=== PATIENT | female | born 1990 | race Caucasian/White ===

== ENCOUNTER 2021-02-22 13:30 | Outpatient (CLI) | payer BC, MEDICAID, SELFPAY ==
[2021-02-22 13:30] VITALS: BMI 27.4
[2021-02-22 13:49] VITALS: BP 119/79; PULSE 88
[2021-02-22 14:19] VITALS: BP 112/61; PULSE 88
[2021-02-22 14:29] VITALS: RESP 16; TEMP 36.7
--- NOTE | 2021-02-22 14:29 | US_ITS ---
WS: [id number] BIOPHYSICAL PROFILE AMNIOTIC FLUID HISTORY: DECREASED MOVEMENT, NON REACTIVE NST COMPARISON: 10/30/2020 Cardiac activity: 144 bpm. Cervix: closed. Placenta: Posterior, no previa or abruption. Placenta grade: 2 Parameters are as follows: Breathin Movement: 2 Tone: 2 Fluid volume: 2 Amniotic fluid index: 14.9 cm which is at the 50th percentile. Largest vertical pocket of amniotic fl uid 6.1 cm. US/US OB BPP wo NST [id number] IMPRESSION: 1. Biophysical profile score: 8/8. 2. Normal amniotic fluid index.
[2021-02-22 14:49] VITALS: BP 120/68; PULSE 98
[2021-02-22 15:19] VITALS: BP 114/72; PULSE 84
[2021-02-22 15:50] VITALS: BP 116/76; PULSE 83
== END 2021-02-22 16:00 | disposition home or self-care (01) ==
LOC: OPOB 13:35 → OBGYN 13:39
PROVIDERS: Visit Provider Family Medicine
DX: O36.8190 Decreased fetal movements, unspecified trimester, not applicable or unspecified (principal); Z3A.00 Weeks of gestation of pregnancy not specified
CPT/HCPCS: 59025; 76819; 99211

== ENCOUNTER 2021-03-12 05:11 | Inpatient (IN) | payer MEDICAID, SELFPAY ==
--- NOTE | 2021-02-14 08:47 | ANES.PREANE2 ---
Pre-Anesthetic Assessment Pre-Anesthetic Assessment: Proposed Procedure: Operation Date: 03/12/21 08:30 Proposed Procedures p Section Repeat(Not Applicable) - Yifan Norman MD Was Beta Sheila taken within 24 hours: N/A Was Clonidine taken within 24 hours: N/A Social: Social History: No alcohol and No tobacco Exam: Pre-Anes Outpt Exam: alert, oriented x 3, clear to auscultation bilaterally and regular rate & rhythm Airway: Submandibular: WNL Cervical ROM: WNL MP: 2 Dentition: Full History/ROS: No significant history except as noted Anesthetic Plan: ASA status: 2 Anesthesia: Regional (specify below) (SAB) Other: Previous C/S Risk of > 500 ml blood loss (7ml/kg in children): Yes, adequate IV access and fluids planned Data Anesthesia Cardiac Studies: No Data to Display
[2021-03-12] VITALS (28 sets, daily range): BP systolic 102–127; BP diastolic 63–83; PULSE 52–85; RESP 15–18; TEMP 36.2–36.7; O2SAT 97–100; BMI 28.7
[2021-03-12 05:56] LABS: Basophils % 0.5 %; Eosinophils % 0.5 %; Hematocrit 34.2 % (37.0-47.0); Hemoglobin 10.6 g/dL (11.5-15.3); Lymphocytes # 2.4 10^3/uL (0.8-4.8); Lymphocytes % 27.7 %; Mean Corpuscular Hemoglobin 27.4 pg (28.0-34.0); Mean Corpuscular Volume 88.4 fl (81-99); Mean Platelet Volume 11.8 fL (7.4-10.4); Monocytes # 0.5 10^3/uL (0.2-0.9); Monocytes % 5.5 %; Neutrophils # 5.68 10^3/uL (1.8-7.7); Neutrophils % 64.5 %; Nucleated Red Blood Cells % 0 %; Platelet Count 181 10^3/cmm (130-400); Red Blood Count 3.87 10^6/uL (4.1-5.3); Red Cell Distribution Width 15.4 % (12.1-15.1); White Blood Count 8.8 10^3/uL (4.0-10.0)
[2021-03-12] MEDS: metoclopramide 5 mg/mL SDV 2 mL 10 MG IVP (06:49)
--- NOTE | 2021-03-12 06:49 | P.ANESASSM_ITS ---
Pre-Anesthetic Assessment Pre-Anesthetic Assessment: Height/Weight: Height 1.57 m Weight 71.214 kg Temp Pulse Resp BP 98.1 F 64 16 112/77 03/12/21 05:36 03/12/21 06:08 02/22/21 14:29 03/12/21 06:08 Preop Diagnosis: previous c section Proposed Procedure: Operation Date: 03/12/21 07:00 Proposed Procedures p Section Repeat(Not Applicable) - Yifan Norman MD Familial anesthetic complications: N/V Was Beta Sheila taken within 24 hours: N/A Was Clonidine taken within 24 hours: N/A Last intake: Intake Last Liquid Date 03/11/21 Last Liquid Time 22:30 Last Solid Date 03/11/21 Last Solid Time 21:00 Last Intake: 22:30 Social: Social History: No alcohol and No tobacco Exam: Pre-Anes Outpt Exam: alert, oriented x 3, clear to auscultation bilaterally and regular rate & rhythm Airway: Submandibular: WNL Cervical ROM: WNL MP: 2 Dentition: Full Pulmonary: Pulmonary: None reported CV/HEM: CV/HEM: None reported : : None reported Hepatic: Hepatic: None reported GI: GI: GERD (with ) Metabolic: Metabolic: None reported Musc/skel: Musc/skel: None reported Neuropsych: Neuropsych: None reported Anesthetic Plan: ASA status: 2 Anesthesia: Regional (specify below) (SAB) Risk of > 500 ml blood loss (7ml/kg in children): Yes, adequate IV access and fluids planned [facility] Anesthesia Female Reproductive History: : 2 Data Anesthesia CBC & Chem 7: 03/12/21 05:35 Other Labs: Laboratory Results - last 48 hr 03/12/21 05:35 WBC 8.8 RBC 3.87 L Hgb 10.6 L Hct 34.2 L MCV 88.4 MCH 27.4 L MCHC 31.0 RDW 15.4 H Plt Count 181 MPV 11.8 H Neut % (Auto) 64.5 Lymph % (Auto) 27.7 [place] % (Auto) 5.5 Eos % (Auto) 0.5 Baso % (Auto) 0.5 Neut # (Auto) 5.68 Lymph # (Auto) 2.4 [place] # (Auto) 0.5 Eos # (Auto) 0.0 Baso # (Auto) 0.0 Nucleated RBC % (auto) 0 Nucleated RBCs # 0.0 Cardiac Studies: No Data to Display
[2021-03-12] MEDS: famotidine 20 mg/2 mL INJ IVP (06:50)
[2021-03-12] MEDS: citric acid-sodium citrate 30 mL UDC PO (06:51)
--- NOTE | 2021-03-12 06:51 | PM.OPHPUD ---
Labor & Delivery H&P Update Date of Procedure: March 12, 2021 Date H&P Performed: 03/11/21 H&P update information: I have reviewed H&P completed within last 30 days, I have examined patient prior to procedure, No changes to prior documentation and H&P to be scanned into chart Admission Diagnosis: 39-week EGA. History of low transverse section Planned procedure: Operation Date: 03/12/21 07:00 Proposed Procedures p Section Repeat(Not Applicable) - Yifan Norman MD Related Problem List Diagnoses (1) 39 weeks gestation of : The patient is presenting for a repeat section. We discussed the risks of bleeding, infection, and damage intra-abdominal organs. She and her have no further questions and wish to proceed. (2) History of :
[2021-03-12] MEDS: carboprost tromethamine 250 mcg/mL Amp IM (07:44)
--- NOTE | 2021-03-12 08:41 | PM.OP ---
Operative Report Date of procedure: March 12, 2021 Pre-op Diagnosis: previous c section, 39 weeks estimated gestation Post-op diagnosis: same Procedure Done: Lower transverse section Specimens removed/disposition: 1. Female infant with a weight of 7 pounds 3 ounces and Apgars of 8 and 9 2. Placenta with a three-vessel cord delivered intact Pathology: none sent Anesthesia: Other (Spinal) Estimated blood loss (mL): 1,500 Condition: stable Disposition: floor (Obstetric) Brief History: Please review history and physical. The patient represented for a scheduled repeat section Procedure: The patient was brought back to the operating room where she was prepped and draped in usual sterile fashion. Anesthesia was found to be adequate. 20 cc of bupivacaine were used to preanesthetized the incision prior to making a cut. A lower transverse skin incision was then made with a #10 blade. I then dissected down to the underlying subcutaneous tissue until arriving at the prerectal fascia. The fascia was then nicked with the scalpel bilaterally. The fascial incisions were then carried laterally with Elmore scissors. Attention was then turned to the superior aspect of the incision which was grasped with kochers and tented up away from the underlying rectus abdominis muscles. The muscles were then dissected away from the fascia manually, and later with Elmore scissors. Attention was then turned to the inferior aspect of the incision, and the fascia was dissected away from the underlying muscle in similar fashion. The rectus abdominis muscles were then spread manually. The peritoneum was entered manually. Excellent visualization of the uterus was noted. A lower transverse uterine incision was then made with a #10 blade. Upon arriving at the intrauterine cavity, the uterine incision was then extended manually. The was noted to be in vertex position. The baby was delivered without difficulty. After delivery of the head, the mouth and nose were suctioned at the site of the incision. There was no meconium. There was no nuchal cord. The remainder of the body was then delivered and placed on the abdomen. The cord was cut and clamped. The baby was then handed to the waiting nurse. The placenta was removed intact. The uterus was externalized. The intrauterine cavity was cleansed of any remaining debris. There continued to be a moderate flow of bleeding from within the uterine cavity. I once again aggressively cleansed the intrauterine cavity of any remaining debris. There continued to be a moderate amount of bleeding as the uterus was still somewhat boggy. Hemabate was given. 1 mL of Pitocin was injected directly into the uterus. The uterine incision was reapproximated in 2 layers. The first layer was performed with 0 Vicryl in a running locked stitch. The second layer was an imbricating stitch also using 0 Vicryl. The uterus was replaced into the abdomen. The peritoneum was then irrigated with warm saline. I reexamined the uterine incision and found it to be hemostatic. The rectus abdominis muscles were then reapproximated using 0 Vicryl in a running stitch. The fascia was then reapproximated using 0 Vicryl in running stitch. The skin was reapproximated using steven. A sterile dressing was placed. The uterus was then evacuated and very little blood was noted. All counts were correct x2. Both the mother and baby were in stable condition. Associated Problem List Diagnoses (1) History of : (2) 39 weeks gestation of :
[2021-03-12] MEDS: dextrose 5%-lactated ringers 1,000 ML 125 ML IV (12:17)
[2021-03-12] MEDS: ketorolac 30 mg/mL INJ IVP ×2 (14:29→20:56)
[2021-03-12 16:02] LABS: Hematocrit 28.9 % (37.0-47.0); Hemoglobin 9.2 g/dL (11.5-15.3); Mean Corpuscular HGB Conc 31.8 g/dL (30.0-36.0); Mean Corpuscular Hemoglobin 27.5 pg (28.0-34.0); Mean Corpuscular Volume 86.3 fl (81-99); Platelet Count 155 10^3/cmm (130-400); Red Blood Count 3.35 10^6/uL (4.1-5.3); Red Cell Distribution Width 12.9 % (12.1-15.1); White Blood Count 19.8 10^3/uL (4.0-10.0)
[2021-03-12] MEDS: ferrous sulfate EC 325 mg Tablet PO (17:37)
[2021-03-12] MEDS: docusate sodium 100 mg Capsule PO (17:37)
[2021-03-13 02:47] VITALS: BP 111/62; PULSE 65; RESP 15; TEMP 37.1; O2SAT 98
[2021-03-13] MEDS: HYDROcodone-acetaminophen 5-325 mg Tablet PO ×4 (04:24→23:17)
[2021-03-13 05:57] LABS: Hematocrit 24.8 % (37.0-47.0); Hemoglobin 7.8 g/dL (11.5-15.3); Mean Corpuscular HGB Conc 31.5 g/dL (30.0-36.0); Mean Corpuscular Volume 85.8 fl (81-99); Platelet Count 124 10^3/cmm (130-400); Red Blood Count 2.89 10^6/uL (4.1-5.3); White Blood Count 12.4 10^3/uL (4.0-10.0)
--- NOTE | 2021-03-13 07:48 | ANE.PACU2 ---
Inpatient post-anesthesia follow up: Airway intact: Yes Vital signs: Temperature 98.8 F Pulse Rate 65 Respiratory Rate 15 Blood Pressure 111/62 Pulse Oximetry 98 Oxygen Delivery Me thod Room Air Oxygen Flow Rate Fraction of Inspir ed Oxygen Hydration adequate: Yes Nausea and vomiting: No Pain level: 2 Mental status: Baseline
[2021-03-13] MEDS: docusate sodium 100 mg Capsule PO ×2 (08:41→17:29)
[2021-03-13] MEDS: ferrous sulfate EC 325 mg Tablet PO ×2 (08:41→17:29)
[2021-03-13] MEDS: prenatal vitamin Capsule 1 CAP PO (08:41)
[2021-03-13 10:45] VITALS: BP 114/74; PULSE 74; RESP 16; TEMP 36.4; O2SAT 96
[2021-03-13] MEDS: ibuprofen 800 mg tablet PO ×3 (10:54→23:17)
[2021-03-13 15:05] LABS: Hematocrit 25.3 % (37.0-47.0); Hemoglobin 8.1 g/dL (11.5-15.3); Mean Corpuscular Hemoglobin 27.8 pg (28.0-34.0); Mean Corpuscular Volume 86.9 fl (81-99); Mean Platelet Volume 11.3 fL (7.4-10.4); Platelet Count 161 10^3/cmm (130-400); Red Blood Count 2.91 10^6/uL (4.1-5.3); Red Cell Distribution Width 13.2 % (12.1-15.1); White Blood Count 9.5 10^3/uL (4.0-10.0)
[2021-03-13 16:28] VITALS: BP 107/71; PULSE 83; RESP 16; TEMP 36.9; O2SAT 97
--- NOTE | 2021-03-13 19:38 | PC.NURSE ---
Dr. Norman called to check on pt. Reported CBC results, reported pt VS have been WNL, pt has tolerated regular diet well and has passed gas and had bowel movement. Reported pt has had more pain today, but has been taking Motrin and hydrocodone and has been getting relief. Reported that pt still has pressure dressing on from earlier today, received orders to remove dressing and place a gauze dressing or a feminine pad over incision and monitor for bleeding.
[2021-03-13 22:38] VITALS: BP 109/71; PULSE 84; RESP 16; TEMP 36.9
--- NOTE | 2021-03-14 06:28 | P.PN_ITS ---
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 The patient is doing well. Her pain is well controlled. Her vaginal bleeding is minimal. She is having some bleeding from the center portion of her incision. It has been gradually improving. Vitals/I&O/Wt Last Vital Signs Temp 98.4 F 03/13/21 22:38 Pulse 84 03/13/21 22:38 Resp 16 03/13/21 22:38 BP 109/71 03/13/21 22:38 Pulse Ox 97 03/13/21 16:28 03/13/21 03/13/21 03/14/21 14:59 22:59 06:59 Intake Total 1000 / 1000 Balance 1000 / 1000 Physical Exam Narrative: EXAM NARRATIVE: She is in no acute distress Lungs are clear auscultation bilaterally Her heart has a regular rate and rhythm Her fundus is below the umbilicus and firm Her dressing demonstrates some serosanguineous fluid over the central portion of her incision. Her extremities have trace edema Urinary Catheter Management^: Morin: Cath Placed During This Visit: yes, but has since been removed by the nurse Reason for Continuing Indwelling Catheter: Perioperative Use in Selected Surgeries Urinary Catheter Date of Insertion: 03/12/21 Urinary Catheter Time of Insertion: 07:10 Date Urinary Catheter Removed: 03/12/21 Time Urinary Catheter Discontinued: 21:01 Data : 03/13/21 14:51 A&P Assessment and plan (1) History of : We will continue to monitor the patient's incisional bleeding. It appears to be slowing down, and anticipate she will be discharged home tomorrow. Status: Acute (2) 39 weeks gestation of : Status: Acute Attestations Medical Necessity Statement*: Routine post care. 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
--- NOTE | 2021-03-14 06:32 | PM.OBGYDC ---
Discharge Providers DIE POLISHER Date of Admission: 03/12/21 05:11 Date of Discharge: 03/14/21 Attending Provider at Admission: Yifan Norman MD Attending Provider at Discharge: Yifan Norman MD Diagnoses at Discharge Discharge Diagnosis (1) History of : Status: Acute (2) 39 weeks gestation of : Status: Acute Hospital Course Hospital Course The patient presented to the hospital for a scheduled repeat section. The was unremarkable with exception of heavier than normal intrauterine bleeding. There were no complications. The patient's course was unremarkable with exception of some midline incisional bleeding. The bleeding gradually improved during her hospital stay. She breast-fed well. She passed gas. She tolerated her diet well. Her pain was well controlled. Information Peripartum Data: Infant Delivery Method: Physical Exam Narrative: EXAM NARRATIVE: She is in no acute distress Lungs are clear auscultation bilaterally Her heart has a regular rate and rhythm Her fundus is below the umbilicus and firm Her dressing is noted to have an area of serosanguineous fluid. Improved since yesterday. Her extremities have trace edema Urinary Catheter Management^: Morin: Cath Placed During This Visit: yes, but has since been removed by the nurse Reason for Continuing Indwelling Catheter: Perioperative Use in Selected Surgeries Urinary Catheter Date of Insertion: 03/12/21 Urinary Catheter Time of Insertion: 07:10 Date Urinary Catheter Removed: 03/12/21 Time Urinary Catheter Discontinued: 21:01 Discharge Data Data Completed and Pending: Labs from last 24 hours 03/13/21 14:51 WBC 9.5 RBC 2.91 L Hgb 8.1 L Hct 25.3 L MCV 86.9 MCH 27.8 L MCHC 32.0 RDW 13.2 Plt Count 161 MPV 11.3 H Vitals: Last Vital Signs Temp 98.4 F 03/13/21 22:38 Pulse 84 03/13/21 22:38 Resp 16 03/13/21 22:38 BP 109/71 03/13/21 22:38 Pulse Ox 97 03/13/21 16:28 Discharge Plan Discharge Patient Disposition: Home Condition: Stable Prescriptions: New ibuprofen 800 mg Tablet 800 mg PO TID Qty: 45 RF: 0 hydrocodone-acetaminophen 5-325 mg Tablet 1 tab PO Q4H PRN (Reason: Moderate To Severe Pain) Qty: 20 RF: 0 ferrous sulfate 325 mg (65 mg iron) Tablet,Delayed Release (Dr/Ec) 325 mg PO BIDWM Qty: 60 RF: 0 Continued prenat.vits,naya,[id number] Tablet 1 tab PO DAILY RF: 0 Discharge Orders: Discharge Order (Routine); Ordered 03/14/21 Ordered By: Yifan Norman Referrals: Yifan Norman MD [Physician] - 7-10 days Discharge Diet: Usual diet Discharge Activity: Limit activity as instructed Patient Instructions: Opioid Safety Discharge Attestations DIE POLISHER Time Spent in Discharge Care*: less than 30 min Specific Discharge Activities: Specific discharge activities: educating patient Coding Level of Care Code Acute 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
[2021-03-14 07:21] VITALS: BP 111/73; PULSE 72; RESP 16
[2021-03-14] MEDS: prenatal vitamin Capsule 1 CAP PO (07:32)
[2021-03-14] MEDS: ferrous sulfate EC 325 mg Tablet PO (07:32)
[2021-03-14] MEDS: HYDROcodone-acetaminophen 5-325 mg Tablet PO (07:32)
[2021-03-14] MEDS: docusate sodium 100 mg Capsule PO (08:44)
[2021-03-14] MEDS: ibuprofen 800 mg tablet PO (08:44)
[2021-03-14 10:25] VITALS: BP 111/73; PULSE 71; RESP 17; TEMP 36.9; O2SAT 98
== END 2021-03-14 11:02 | disposition home or self-care (01) | DRG 787 ==
PROVIDERS: Admitting Provider Family Medicine; Visit Provider Family Medicine
PROC: 10D00Z1 Extraction of Products of Conception, Low, Open Approach (ICD-10-PCS; CPT 59514; principal; 2021-03-12 07:00)
DX: O34.219 Maternal care for unspecified type scar from previous cesarean delivery (principal); F50.2 Bulimia nervosa; Z3A.39 39 weeks gestation of pregnancy; Z37.0 Single live birth; O75.89 Other specified complications of labor and delivery
CPT/HCPCS: 12345; 36415; 59025; 59409; 85025; 85027; 86900; 96372; 96374; 98960; J0690; J1100; J1200; J1885; J2274; J2765; J3490

== ENCOUNTER 2023-11-05 10:59 | Outpatient (CLI) | payer MEDICAID, SELFPAY ==
[2023-11-05 11:38] LABS: Basophils # 0.1 10^3/uL (0.0-0.1); Basophils % 0.6 %; Eosinophils # 0.1 10^3/uL (0.0-0.8); Eosinophils % 0.9 %; Hematocrit 42.8 % (36-47); Lymphocytes # 2.7 10^3/uL (0.8-4.8); Lymphocytes % 29.8 %; Mean Corpuscular HGB Conc 32.2 g/dL (30-55); Mean Corpuscular Hemoglobin 27.6 pg (27-33); Mean Corpuscular Volume 85.6 fl (85-98); Mean Platelet Volume 9.9 fL (7.4-10.4); Monocytes # 0.5 10^3/uL (0.2-0.9); Neutrophils # 5.74 10^3/uL (1.8-7.7); Neutrophils % 63.4 %; Nucleated Red Blood Cells % 0 %; Platelet Count 273 10^3/cmm (157-399); Red Cell Distribution Width 12.8 % (12.1-15.1); White Blood Count 9.04 10^3/uL (3.29-11.43)
[2023-11-05 12:18] LABS: Folate Level 10.6 ng/mL (4.8-37.3)
[2023-11-05 12:19] LABS: 25 Hydroxy Vitamin D 28 ng/mL (30-100); Ferritin 38 ng/mL (15-150); Thyroid Stimulating Hormone 4.56 uIU/mL (0.27-4.20); Vitamin B12 570 pg/mL (232-1245)
[2023-11-05 13:38] LABS: Free T4 Free Thyroxine 1.17 ng/dL (0.82-1.77)
[2023-11-09 11:13] LABS: Zinc Level, Serum or Plasma 120 mcg/dL (60-130)
== END 2023-11-05 11:00 | disposition home or self-care (01) ==
LOC: LAB 11:01
PROVIDERS: Visit Provider Nurse Practitioner Family
DX: L65.0 Telogen effluvium (principal); L40.0 Psoriasis vulgaris
CPT/HCPCS: 36415; 82306; 82607; 82728; 82746; 84439; 84443; 84630; 85025